=== PATIENT | male | born 1960 | race African-American/Black ===

== ENCOUNTER 2018-12-02 05:27 | Inpatient (IN) | payer OTHER ==
[~2018-12-02] VITALS: Ht 195.6 cm; Wt 176.4 kg
[~2018-12-02 05:27] MED LIST: AMLODIPINE BESYL5 MG PO; ATORVASTATIN CA20 MG PO
--- OUTSIDE RECORDS SUMMARY | 2018-12-02 05:42 | XMS REPORT | Clinical Summary ---
Author Author BRANDON [facility] Organization [facility] Address Unknown Phone Unavailable Care Team Providers Care Logistics Technician Name Role Phone Keshawn Anderson MD PCP Allergies No Known Allergies Medications End Date Status Medication Sig Dispensed Refills Start Date 07/04/2019 Active clotrimazole-betamethason Apply 30 g 1 e (LOTRISONE) 1-0.05 % topically 2 9 creamIndications: Tinea (two) times cruris daily. 10/29/2019 Active amLODIPine (NORVASC) 5 MG Take 1 tablet 90 tablet 0 tabletIndications: (5 mg total) 9 Essential hypertension by mouth daily. Active atorvastatin (LIPITOR) 20 Take 1 tablet 90 tablet 0 MG tabletIndications: (20 mg total) 9 Dyslipidemia by mouth daily. 01/03/2018 terbinafine HCl (LAMISIL) Take 1 tablet 30 tablet 0 250 mg tabletIndications: (250 mg 7 Onychomycosis of toenail total) by mouth daily. 01/01/2018 Discontinued atorvastatin (LIPITOR) 20 TAKE 1 90 tablet 1 MG tabletIndications: TABLET(20 MG) 8 Dyslipidemia BY MOUTH DAILY 01/01/2018 Discontinued atorvastatin (LIPITOR) 20 TAKE 1 30 tablet 5 MG tabletIndications: TABLET(20 MG) 8 Dyslipidemia BY MOUTH DAILY 01/01/2018 Discontinued amLODIPine (NORVASC) 5 MG Take 1 tablet 30 tablet 5 tabletIndications: (5 mg total) 8 Essential hypertension by mouth daily. 07/04/2018 Discontinued clotrimazole-betamethason Apply 30 g 1 e (LOTRISONE) 1-0.05 % topically 2 8 creamIndications: Tinea (two) times cruris daily. 09/03/2018 Discontinued atorvastatin (LIPITOR) 20 Take 1 tablet 90 tablet 1 MG tabletIndications: (20 mg total) 8 Dyslipidemia by mouth daily. 10/29/2018 Discontinued amLODIPine (NORVASC) 5 MG Take 1 tablet 90 tablet 1 tabletIndications: (5 mg total) 8 Essential hypertension by mouth daily. 10/29/2018 Discontinued atorvastatin (LIPITOR) 20 Take 1 tablet 90 tablet 1 MG tabletIndications: (20 mg total) 9 Dyslipidemia by mouth daily. Active Problems Problem Noted Date Essential hypertension 08/04/2017 Tinea cruris 08/04/2017 Dyslipidemia 06/03/2017 Onychomycosis of toenail 01/08/2017 Obesity, Class III, BMI 40-49.9 (morbid obesity) 12/15/2016 DONATO (obstructive sleep apnea) 12/15/2016 Encounters Care Team Description Date Type Specialty Keshawn Anderson III, MD Essential hypertension; Dyslipidemia 10/29/2018 Refill Family Medicine Keshawn Anderson III, MD Dyslipidemia 09/03/2018 Refill Family Medicine Keshawn Anderson III, MD Tinea cruris 07/04/2018 Refill Family Medicine Keshawn Anderson III, MD Annual physical exam (Primary Dx); Obesity, Class III, BMI 40-49.9 (morbid obesity) ([facility]); DONATO (obstructive sleep apnea); Essential hypertension; Dyslipidemia 07/01/2018 Office Visit Family Medicine Keshawn Anderson III, MD DONATO on CPAP (Primary Dx); Essential hypertension; Obesity, Class III, BMI 40-49.9 (morbid obesity) (HCC) 04/02/2018 Office Visit Family Medicine Keshawn Anderson III, MD 01/22/2018 Orders Only Internal Medicine Keshawn Anderson III, MD Essential hypertension; Dyslipidemia 01/01/2018 Office Visit Family Medicine after 12/01/2017 Immunizations Name Dates Previously Given Next Due Influenza TIV (IM) 01/30/2018 Family History Relation Name Status Comments Father Mother Social History Date Tobacco Use Types Packs/Day Years Used Never Smoker Smokeless Tobacco: Never Used Alcohol Use Drinks/Week oz/Week Comments Yes ocassionally Sex Assigned at Date Recorded Not on file Industry Job Start Date Occupation Not on file Not on file Not on file Travel End Travel History Travel Start No recent travel history available. Last Filed Vital Signs Time Taken Vital Sign Reading 07/01/2018 8:56 AM CDT Blood Pressure 128/86 07/01/2018 8:56 AM CDT Pulse 96 07/01/2018 8:56 AM CDT Temperature 36.8 C (98.2 F) - Respiratory Rate - 07/01/2018 8:56 AM CDT Oxygen Saturation 96% - Inhaled Oxygen - Concentration 07/01/2018 8:56 AM CDT Weight 180.1 kg (397 lb) 07/01/2018 8:56 AM CDT Height 195.6 cm (6' 5") 07/01/2018 8:56 AM CDT Body Mass Index 47.08 Plan of Treatment Care Team Description Date Type Specialty Keshawn Anderson III, MD [facility] [address] [phone] 01/01/2019 Office Visit Family Medicine Procedures Comments Procedure Name Priority Date/Time Associated Diagnosis MICROSCOPIC EXAMINATION Routine 07/01/2018 9:56 AM CDT URINALYSIS W/ MICROSCOPIC Routine 07/01/2018 Annual physical exam 9:56 AM CDT CBC W/PLT COUNT & AUTO Routine 07/01/2018 Annual physical exam DIFFERENTIAL 9:56 AM CDT TSH Routine 07/01/2018 Annual physical exam 9:56 AM CDT PSA Routine 07/01/2018 Annual physical exam 9:56 AM CDT HEMOGLOBIN A1C Routine 07/01/2018 Annual physical exam 9:56 AM CDT LIPID PANEL Routine 07/01/2018 Annual physical exam 9:56 AM CDT COMPREHENSIVE METABOLIC Routine 07/01/2018 Annual physical exam PANEL 9:56 AM CDT ECG 12-LEAD Routine 07/01/2018 Annual physical exam after 12/01/2017 Results * MICROSCOPIC EXAMINATION (07/01/2018 9:56 AM CDT) WBC 0-5 0 - 5 /hpf [facility] RBC 0-2 0 - 2 /hpf [facility] 1 Epithelial Cells (non None seen 0 - 10 /hpf [facility] 1 renal) Mucus Threads Present Not Estab. [facility] 1 Bacteria None seen None seen/ [facility] 1 Specimen Narrative Performed At Performed at: [facility] [address] [place], [place] [id number] Marine Electrician Apprentice: Jose Enrique Neely MD, Phone:[phone] Performing Organization Address [facility] Phone Number [facility] * Urinalysis w/ Microscopic (07/01/2018 9:56 AM CDT) Specific [place], UA 1.022 1.005 - 1.03 [facility] 1 pH, UA 5.5 5.0 - 7.5 [facility] Color, UA Yellow Yellow [facility] 1 Appearance Clear Clear [facility] 1 WBC Esterase Negative Negative [facility] 1 Protein, UA Negative Negative/T [facility] 1 Glucose, Urine Negative Negative [facility] 1 Ketones, UA Negative Negative [facility] 1 Blood, UA Negative Negative [facility] 1 Bilirubin, UA Negative Negative [facility] 1 Urobilinogen,Semi-Qn 0.2 0.2 - 1.0 mg/dL [facility] 1 Nitrite, UA Negative Negative [facility] 1 Microscopic Examination CommentComment: Microscopic [facility] 1 follows if indicated. Microscopic Examination See below:Comment: Microscopic [facility] 1 was indicated and was performed. Specimen Urine Narrative Performed At Performed at: [facility] [address] [place], [place] [id number] Marine Electrician Apprentice: Jose Enrique Neely MD, Phone:[phone] Performing Organization Address [facility] Phone Number [facility] * CBC w/PLT Count Auto Differential (07/01/2018 9:56 AM CDT) WBC 6.9 3.4 - 10.8 x10E3/uL [facility] 1 RBC 5.32 4.14 - 5.80 x10E6/uL [facility] 1 Hemoglobin 14.8 13.0 - 17.7 g/dL [facility] 1 Hematocrit 44.9 37.5 - 51.0 % [facility] 1 MCV 84 79 - 97 fL [facility] 1 MCH 27.8 26.6 - 33.0 pg [facility] 1 MCHC 33.0 31.5 - 35.7 g/dL [facility] 1 RDW 14.4 12.3 - 15.4 % [facility] 1 Platelets 269 150 - 379 x10E3/uL [facility] % Neutros 55 Not Estab. % [facility] % Lymphs 29 Not Estab. % [facility] % Monos 9 Not Estab. % [facility] % Eos 5 Not Estab. % [facility] % Baso 2 Not Estab. % [facility] # Neutros 3.8 1.4 - 7.0 x10E3/uL [facility] # Lymphs 2.0 0.7 - 3.1 x10E3/uL [facility] # Monos 0.6 0.1 - 0.9 x10E3/uL [facility] # Eos 0.4 0.0 - 0.4 x10E3/uL [facility] 1 Baso (Absolute) 0.1 0.0 - 0.2 x10E3/uL [facility] % Immature Grans 0 Not Estab. % [facility] # Immature Grans 0.0 0.0 - 0.1 x10E3/uL [facility] 1 Specimen Blood Narrative Performed At Performed at:[address] [place], [place] [id number] Marine Electrician Apprentice: Jose Enrique Neely MD, Phone:[phone] Performing Organization Address [facility] Phone Number [facility] * TSH (07/01/2018 9:56 AM CDT) TSH 3.500 0.450 - 4.50 uIU/mL [facility] 1 Specimen Blood Narrative Performed At Performed at:[address] [place], [place] [id number] Marine Electrician Apprentice: Jose Enrique Neely MD, Phone:[phone] Performing Organization Address [facility] Phone Number [facility] * PSA (07/01/2018 9:56 AM CDT) Prostate Specific Ag, 1.1 0.0 - 4.0 ng/mL [facility] 1 Serum Comment: Rafal ECLIA methodology. According to the [place] [employer], Serum PSA should decrease and remain at undetectable levels after radical prostatectomy. The AUA defines biochemical recurrence as an initial PSA value 0.2 ng/mL or greater followed by a subsequent confirmatory PSA value 0.2 ng/mL or greater. Values obtained with different assay methods or kits cannot be used interchangeably. Results cannot be interpreted as absolute evidence of the presence or absence of malignant disease. Specimen Blood Narrative Performed At Performed at:[address] [place], [place] [id number] Marine Electrician Apprentice: Jose Enrique Neely MD, Phone:[phone] Performing Organization Address [facility] Phone Number [facility] * Hemoglobin A1c (07/01/2018 9:56 AM CDT) Hemoglobin A1c 6.1 (H) 4.8 - 5.6 % [facility] Comment: Prediabetes: 5.7 - 6.4 Diabetes: >6.4 Glycemic control for adults with diabetes: <7.0 Specimen Blood Narrative Performed At Performed at: [id number] Marine Electrician Apprentice: Jose Enrique eNely MD, Phone:[phone] Performing Organization Address [facility] Phone Number [facility] * Lipid panel (07/01/2018 9:56 AM CDT) Cholesterol, Total 203 (H) 100 - 199 mg/dL [facility] Triglycerides 78 0 - 149 mg/dL [facility] 1 HDL Cholesterol 65 >39 mg/dL [facility] 1 VLDL Cholesterol Aroldo 16 5 - 40 mg/dL [facility] 1 LDL Cholesterol Calc 122 (H) 0 - 99 mg/dL [facility] 1 LDL/HDL Ratio 1.9 0.0 - 3.6 ratio [facility] 1 Comment: LDL/HDL Ratio Me nWomen 1/2 Avg.Risk1.01.5 Avg.Risk3.6 3.2 2X Avg.Risk6.25.0 3X Avg.Risk8.06.1 Specimen Blood Narrative Performed At Performed at:[address] [place], [place] [id number] Marine Electrician Apprentice: Jose Enrique Neely MD, Phone:[phone] Performing Organization Address [facility] Phone Number [facility] * Comprehensive metabolic panel (07/01/2018 9:56 AM CDT) Glucose, Serum 82 65 - 99 mg/dL [facility] 1 BUN 14 6 - 24 mg/dL [facility] 1 Creatinine, Serum 1.15 0.76 - 1.27 mg/dL [facility] 1 eGFR If NonAfricn Am 70 >59 mL/min/1.73 [facility] 1 eGFR If Africn Am 81 >59 mL/min/1.73 [facility] 1 BUN/Creatinine Ratio 12 9 - 20 [facility] 1 Sodium, Serum 140 134 - 144 mmol/L [facility] 1 Potassium, Serum 4.3 3.5 - 5.2 mmol/L [facility] 1 Chloride, Serum 101 96 - 106 mmol/L [facility] 1 Carbon Dioxide, Total 25 20 - 29 mmol/L [facility] 1 Calcium, Serum 9.4 8.7 - 10.2 mg/dL [facility] 1 Protein, Total, Serum 6.8 6.0 - 8.5 g/dL [facility] 1 Albumin, Serum 4.3 3.5 - 5.5 g/dL [facility] 1 Globulin, Total 2.5 1.5 - 4.5 g/dL [facility] 1 A/G Ratio 1.7 1.2 - 2.2 [facility] 1 Bilirubin, Total 0.5 0.0 - 1.2 mg/dL [facility] 1 Alkaline Phosphatase, S 78 39 - 117 IU/L [facility] 1 AST (SGOT) 18 0 - 40 IU/L [facility] 1 ALT (SGPT) 15 0 - 44 IU/L [facility] 1 Specimen Blood Narrative Performed At Performed at:01 - [facility] [address] [place], [id number] Marine Electrician Apprentice: Jose Enrique Neely MD, Phone:[phone] Performing Organization Address City/[facility]/[employer] Phone Number [facility] * ECG 12 lead (07/01/2018) Specimen Narrative Performed At Performing Organization Address City/[facility]/Zipcode Phone Number GE ISELA after 12/01/2017 Insurance Payer Benefit Subscriber ID Type Phone Address Plan / Group xxxxxxxxx Other Govt (, [place], [facility], etc.)
[2018-12-02] MEDS ORDERED: CEFAZOLIN SOD 1 GM/NS 50ML 100 ML IV ONE (06:14)
[2018-12-02] MEDS ORDERED: ACETAMINOPHEN 1000 MG/100 ML 100 ML IV ONE (06:50)
[2018-12-02] MEDS ORDERED: SCOPOLAMINE 1.5 MG PATCH ONE (06:51)
[2018-12-02] MEDS ORDERED: LIDOCAINE HCL (LTA) 4 ML SOLN ONE (06:51)
[2018-12-02] MEDS ORDERED: SUGAMMADEX SODIUM 200 MG/2 ML VIAL IV ONE (06:51)
[2018-12-02] MEDS ORDERED: BUPIVACAINE HCL 0.5% INJ 30 ML VIAL INJ ONE (06:54)
[2018-12-02] MEDS ORDERED: ONDANSETRON HCL INJ 2MG/ML 2ML 2 MG/ML VIAL IV PRN (09:30)
--- OUTSIDE RECORDS SUMMARY | 2018-12-02 10:17 | XMS REPORT | Clinical Summary ---
Author Author BRANDON [facility] ExpressSt[facility] JeromeON[facility] OnlineMad[facility] Organization [facility] Address Unknown Phone Unavailable Care Team Providers Care Records Management Technician Name Role Phone Keshawn Anderson MD [...] Obesity, Class III, BMI 40-49.9 (morbid obesity) ([facility]); DONATO (obstructive sleep apnea); Essential hypertension; Dyslipidemia [...] Type Specialty Keshawn Anderson III, MD [facility] [facility] [address] [phone] 01/01/2019 Office Visit Family Medicine Procedures Comments [...] 1 Specimen Narrative Performed At Performed at: [facility] [address] [place], [place] [id number] Application Security Specialist: Jose Enrique Neely MD, Phone:[phone] Performing Organization Address [facility] Phone Number [facility] * Urinalysis w/ Microscopic (07/01/2018 9:56 AM CDT) Specific [place], UA 1.022 1.005 - 1.03 [facility] [...] Specimen Urine Narrative Performed At Performed at: [facility] [address] [place], [place] [id number] Application Security Specialist: Jose Enrique Neely MD, Phone:[phone] Performing Organization Address [facility] Phone Number [facility] * CBC [...] 1 Specimen Blood Narrative Performed At Performed at:[address] [place], [place] [id number] Application Security Specialist: Jose Enrique Neely MD, Phone:[phone] Performing Organization Address [facility] Phone Number [facility] * TSH (07/01/2018 9:56 AM CDT) TSH 3.500 0.450 - 4.50 uIU/mL [facility] 1 Specimen Blood Narrative Performed At Performed at:[address] [place], [place] [id number] Application Security Specialist: Jose Enrique Neely MD, Phone:[phone] Performing Organization Address [facility] Phone Number [facility] * PSA (07/01/2018 9:56 AM CDT) Prostate Specific Ag, 1.1 0.0 - 4.0 ng/mL [facility] 1 Serum Comment: Rafal ECLIA methodology. According to the [place] [employer], Serum PSA should decrease and [...] disease. Specimen Blood Narrative Performed At Performed at:[address] [place], [place] [id number] Application Security Specialist: Jose Enrique Neely MD, Phone:[phone] Performing Organization Address [facility] Phone Number [facility] * Hemoglobin A1c (07/01/2018 9:56 AM CDT) Hemoglobin A1c 6.1 (H) 4.8 - 5.6 % [facility] 1 Comment: Prediabetes: 5.7 - 6.4 Diabetes: >6.4 Glycemic control for adults with diabetes: <7.0 Specimen Blood Narrative Performed At Performed at: [id number] Application Security Specialist: Jose Enrique Neely MD, Phone:[phone] Performing Organization Address [facility] Phone Number [facility] 1 * Lipid panel (07/01/2018 9:56 AM [...] Avg.Risk8.06.1 Specimen Blood Narrative Performed At Performed at:[address] [place], [place] [id number] Application Security Specialist: Jose Enrique Neely MD, Phone:[phone] Performing Organization Address [facility] Phone Number [facility] [...] Narrative Performed At Performed at:01 - [facility] [address] [place], [id number] Application Security Specialist: Jose Enrique Neely MD, Phone:[phone] Performing Organization Address City/[facility]/[employer] Phone Number [facility] * ECG 12 lead (07/01/2018) Specimen Narrative Performed At Performing Organization Address City/[facility]/Zipcode Phone Number GE ISELA after 12/01/2017 Insurance Payer Benefit Subscriber ID Type Phone Address Plan / Group xxxxxxxxx Other Govt (, [place], [facility], etc.)
[2018-12-02] MEDS ORDERED: FENTANYL CITRATE/PF 100MCG/2 ML INJ ONE ×2 (10:25→14:34)
--- NOTE | 2018-12-02 11:07 | Operative Report ---
DATE OF PROCEDURE: 12/02/2018 SURGEON: Ren De Jesus MD PREOPERATIVE DIAGNOSES: 1. Morbid obesity. 2. BMI of 48. 3. Hypertension. 4. Obstructive sleep apnea. 5. Failure to lose weight, status post lap band placement. POSTOPERATIVE DIAGNOSES: 1. Morbid obesity. 2. BMI of 48. 3. Hypertension. 4. Obstructive sleep apnea. 5. Failure to lose weight, status post lap band placement. PREOPERATIVE INDICATION: Treat disease, prevent complications related to comorbid conditions of obesity. PROCEDURES: 1. Laparoscopic vertical sleeve gastrectomy. 2. Laparoscopic removal of adjustable gastric band and subcutaneous port. 3. Placement of placental tissue allograft matrix (product code [id number], CPT code 60572). ANESTHESIA: General. ASSISTANTS: Riccardo Salazar, medical or surgical instrument maker (needed due to complexity of case). FLUIDS: 1400 mL of crystalloid. ESTIMATED BLOOD LOSS: 30 mL. DRAINS: None. COMPLICATIONS: None. SPECIMENS: 1. Partial stomach. 2. Laparoscopic adjustable gastric band, subcutaneous port, and catheter component. GRAFTS: None. FINDINGS: 1. Adhesions from laparoscopic adjustable gastric band. 2. Negative intraoperative EGD leak test. PROCEDURE IN DETAIL: The patient was brought to the operating room and was intubated under general endotracheal anesthesia. He was sterilely prepped and draped in the usual fashion. A preprocedure pause performed identifying the patient, use of perioperative antibiotics, intended procedure, and staff surgeon. Access was gained via a 5 mm left subcostal incision using a Veress needle. The abdomen was insufflated. Four additional trocars were placed in the standard positions. The liver retractor was placed to expose the lap band as well as the stomach. The lap band was cleared from his surrounding adhesions using the Harmonic Scalpel, it was then cut and removed. The intraabdominal portion of the catheter was also cut. The intraabdominal portion of the lap band was removed through the right periumbilical port site. I then spent a great deal of time and lysing adhesions over the anterior surface of the stomach in order for preparation of the gastric sleeve. I then mobilized the greater curvature stomach from about 4 cm proximal to the pyloric valve to the left harris of the diaphragm using the [place] LigaSure device. I then inserted an adult size endoscope along the lesser curve of the stomach. The greater curvature of stomach was resected with multiple firings of a 60 mm Endo-MACKENZIE purple load Covidien stapling device, which was reinforced with SeamGuard. Once this was complete, I then submerged this sleeve under saline. No leaks were identified. The specimen was removed through the right periumbilical port site. Of note, there was a polyp on the gastric specimen on the serosal layer. This specimen was then sent to pathology for further analysis. I then achieved hemostasis, desufflated the abdomen and closed the large port site with 0 Vicryl suture using a Kee Naidu technique in a [id number] fashion and removed the trocars. We then made a secondary incision overlying the previous transverse incision over the subcutaneous port site. Dissection was carried through the subcutaneous tissues down to the level of the port. The port was circumferentially dissected free of its surrounding attachments and removed along with the rest of the intraabdominal portion of the catheter, which was confirmed. We then closed the large wound with Vicryl suture as well as 4-0 Monocryl suture in subcuticular fashion. Dermabond dressings were applied. A 4-0 Monocryl was used for the rest of the incision sites in a subcuticular fashion to close the incisions. We then also applied 8 mL of placental tissue allograft matrix on the incision sites for further healing properties. Once this was complete, the patient tolerated the procedure well. All surgical sponges and counts were correct. Type of wound is type 2, clean and contaminated. MD MARQUES Lozano/VIRIDIANA /[id number]
[2018-12-02] MEDS ORDERED: SCOPOLAMINE 1.5 MG PATCH TOP SCH (12:00)
[2018-12-02] MEDS: MORPHINE SULFATE 2 MG/ML SYR 1ML IV PRN ×2 (12:54→22:07)
[2018-12-02] MEDS: SODIUM CHLORIDE 0.9% 1000ML 1,000 ML IV SCH ×2 (12:56→20:48)
[2018-12-02 13:36] VITALS: BP_SYST 155; BP_SYST 161; BP_DIAS 79; BP_DIAS 87
[2018-12-02] MEDS ORDERED: MORPHINE SULFATE INJ 10 MG/ML ONE (14:34)
[2018-12-02] MEDS ORDERED: MIDAZOLAM HCL 2 MG/2 ML VIAL ONE (14:34)
[2018-12-02 16:56] VITALS: BP 169/88
--- NOTE | 2018-12-02 17:47 | NUR ---
PATIENT REQUESTED ICE, CALLED JOSE JUAN DUTTON, DR. MAYA STATED THAT PATIENT CAN HAVE ORAL MEDICATIONS WITH A SIP OR WATER AND ICE CHIPS.
[2018-12-02] MEDS ORDERED: SEVOFLURANE INHAL SOLN 250 ML PEN BTL ONE (18:13)
[2018-12-02] MEDS ORDERED: LIDOCAINE HCL 2% JELLY 5 ML TUBE ONE (18:13)
[2018-12-02] MEDS ORDERED: LIDOCAINE HCL 2% LOCAL INJ 5 ML SDV VIAL INJ ONE (18:13)
[2018-12-02] MEDS ORDERED: ROCURONIUM BROMIDE 10 MG/ML 5ML VIAL ONE (18:13)
[2018-12-02] MEDS ORDERED: ONDANSETRON HCL INJ 2MG/ML 2ML 2 MG/ML VIAL ONE (18:13)
[2018-12-02] MEDS ORDERED: DEXAMETHASONE SOD PHOS INJ 4 MG/ML VIAL ONE (18:13)
[2018-12-02] MEDS ORDERED: PROPOFOL IV EMULSION 10 MG/ML 20 ML VIAL ONE (18:13)
[2018-12-02] MEDS: ENOXAPARIN SOD INJ 40 MG/0.4 ML SYR SC SCH (20:48)
[2018-12-02] MEDS ORDERED: AMLODIPINE BESYLATE 5 MG TAB PO SCH (21:00)
[2018-12-02 23:53] VITALS: BP 178/87
[2018-12-03 02:01] VITALS: BP 178/87
[2018-12-03] MEDS: SODIUM CHLORIDE 0.9% 1000ML 1,000 ML IV SCH (04:37)
[2018-12-03 04:39] VITALS: BP 165/80
[2018-12-03 05:53] LABS: BASOPHILS % 0.3 % (0.0-1.0); EOSINOPHILS % 0.1 % (0.0-6.0); HEMATOCRIT 44.6 % (38.2-49.6); HEMOGLOBIN 14.4 g/dL (14.0-18.0); LYMPHOCYTES # (AUTO) 1.5 (1.0-3.2); MEAN CORPUSCULAR HEMOGLOBIN 27.8 pg (28-32); MEAN CORPUSCULAR HGB CONC 32.3 g/dL (31-35); MEAN CORPUSCULAR VOLUME 86.1 fL (81-99); MONOCYTES % 10.6 % (4.4-11.3); NEUTROPHILS # (AUTO) 7.1 (2.1-6.9); NEUTROPHILS % 73.6 % (38.7-80.0); PLATELET COUNT 267 x10e3/uL (140-360); RED BLOOD COUNT 5.18 x10e6/uL (4.3-5.7); RED CELL DISTRIBUTION WIDTH 14.7 % (11.7-14.4)
[2018-12-03 06:00] LABS: ALANINE AMINOTRANSFERASE 24 IU/L (0-55); ALBUMIN 3.6 g/dL (3.5-5.0); ALBUMIN/GLOBULIN RATIO 1.1 (0.8-2.0); ALKALINE PHOSPHATASE 59 IU/L (40-150); ANION GAP 11.8 mmol/L (8-16); BLOOD UREA NITROGEN 8 mg/dL (7-26); BUN/CREATININE RATIO 9 (6-25); CALCIUM 9.3 mg/dL (8.4-10.2); CARBON DIOXIDE 29 mmol/L (22-29); CHLORIDE 101 mmol/L (98-107); CREATININE, SERUM 0.93 mg/dL (0.72-1.25); EST GLOMERULAR FILTRATION RATE > 60 ML/MIN (60-); GLUCOSE 85 mg/dL (74-118); MAGNESIUM 2.5 MG/DL (1.3-2.1); PHOSPHORUS 3.8 MG/DL (2.3-4.7); POTASSIUM 4.8 mmol/L (3.5-5.1); SODIUM 137 mmol/L (136-145)
--- NOTE | 2018-12-03 07:19 | NUR ---
RECEIVED PATIENT RESTING IN BED NO SIGNS OF DISTRESS. BED LOW, WHEELS LOCKED, SIDE RAILS X2. CALL LIGHT IN REACH WILL CONTINUE TO MONITOR PATIENT.
[2018-12-03] MEDS ORDERED: HYDROCODONE/APAP 7.5MG-325MG 1 EA TAB PO PRN (07:30)
[2018-12-03 08:34] VITALS: BP 182/97
[2018-12-03 08:45] VITALS: BP 182/97
[2018-12-03] MEDS: ENOXAPARIN SOD INJ 40 MG/0.4 ML SYR SC SCH (09:12)
[2018-12-03] MEDS ORDERED: AMLODIPINE BESYLATE 5 MG TAB PO SCH (10:30)
--- NOTE | 2018-12-03 11:01 | NUR ---
PATIENT A/O X3, EVEN RESPIRATIONS ON 3LNC. LUNG SOUNDS CLEAR TO AUSCULTATION. RIGHT HAND 20 GAUGE IV WITH NS @ 125 CC/HR. IV INTACT AND PATENT. PATIENT AMBULATES INDEPENDENTLY. ZARA HOSE AND SCD's BILATERALLY. NO PAIN AT THIS TIME. [address], NO DRAINAGE. ABDOMEN SOFT, NON-DISTENDED. CALL LIGHT IN REACH WILL CONTINUE TO MONITOR PATIENT.
--- NOTE | 2018-12-03 11:44 | NUR ---
Progress Note S: No complaints O: AF, VSS General- no acute distress Abd- soft, incisions healing well A/P: POD 1, s/p Lap revision band to sleeve gastrectomy -Clears, ambulate, IS, OOB to chair -DC home -Follow up in 1 week -DC instructions and diet instructions given to patient
[2018-12-03] MEDS ORDERED: TYLENOL WITH C1 EACH PO (11:54)
[2018-12-03] MEDS ORDERED: ZOFRAN4 MG PO (11:54)
[2018-12-03 11:58] VITALS: BP 177/92
--- NOTE | 2018-12-03 13:05 | NUR ---
REMOVED PATIENTS IV. CATHETER TIP INTACT ON REMOVAL AND PRESSURE DRESSING APPLIED.
--- NOTE | 2018-12-03 13:52 | NUR ---
PATIENT DISCHARGED FROM FACILITY. PATIENT GATHERED ALL PERSONAL BELONGINGS, DISCHARGE INSTRUCTIONS, AND FOLLOW UP INFORMATION. LEFT UNIT IN WHEELCHAIR AND WENT HOME VIA PRIVATE AUTO. NO SIGNS OF DISTRESS WHEN LEAVING FACILITY.
== END 2018-12-03 13:52 | disposition home or self-care (01) | DRG 621 ==
LOC: OR 05:27 → PACU V 10:06 → MED/SURG 11:26
PROVIDERS: ADMIT Internal Medicine; ATTEND Internal Medicine
PROC: 0DB64Z3 Excision of Stomach, Percutaneous Endoscopic Approach, Vertical (ICD-10-PCS; 2018-12-02)
PROC: 0JU80KZ Supplement of Abdomen Subcutaneous Tissue and Fascia with Nonautologous Tissue Substitute, Open Approach (ICD-10-PCS; 2018-12-02)
PROC: 0DP64CZ Removal of Extraluminal Device from Stomach, Percutaneous Endoscopic Approach (ICD-10-PCS; principal; 2018-12-02 07:30)
DX: E66.01 Morbid (severe) obesity due to excess calories (principal); Z68.42 Body mass index [BMI] 45.0-49.9, adult; G47.33 Obstructive sleep apnea (adult) (pediatric); I10 Essential (primary) hypertension; Z98.84 Bariatric surgery status
CPT/HCPCS: 36415; 80053; 83735; 84100; 85025; 88307; 88312; 93005; J0690; J1100; J1650; J2001; J2250; J2270; J2405; J3010; J7030